=== PATIENT | female | born 1985 | race Caucasian/White ===

== ENCOUNTER 2017-05-11 11:20 | Observation (INO) | payer OTHER, MEDICARE ==
[~2017-05-11] VITALS: Ht 162.6 cm; Wt 82.1 kg
[2017-05-11] MEDS ORDERED: LR 1,000 ML IV SCH (13:20)
[2017-05-11 15:08] VITALS: BP_SYST 106
[2017-05-11] MEDS ORDERED: NALBUPHINE HCL 10 MG/ML AMP IVP PRN (15:45)
== END 2017-05-11 19:35 | disposition home or self-care (01) ==
LOC: SPU 11:20
PROVIDERS: ADMIT Obstetrics & Gynecology; ATTEND Obstetrics & Gynecology
DX: O21.2 Late vomiting of pregnancy (principal); O62.9 Abnormality of forces of labor, unspecified; O40.3XX0 Polyhydramnios, third trimester, not applicable or unspecified; Z3A.37 37 weeks gestation of pregnancy
CPT/HCPCS: 76815; G0378; J2300